=== PATIENT | female | born 1950 | race Caucasian/White ===

== ENCOUNTER → 2016-09-20 | Outpatient (CLI) | payer BC ==
--- NOTE | 2016-09-21 11:59 | MM ---
Reason for exam: screening (asymptomatic). Last mammogram was performed 1 year ago. History: Patient is postmenopausal. Physical Findings: A clinical breast exam by your physician is recommended on an annual basis and results should be correlated with mammographic findings. MG Screening Mammo w CAD Bilateral CC and MLO view(s) were taken. Prior study comparison: September 17, 2015, bilateral MG screening mammo w CAD. July 23, 2014, bilateral MG screening mammo w CAD. April 11, 2013, bilateral digital screening mammo w/CAD. There are scattered fibroglandular densities. No significant changes when compared with prior studies. ASSESSMENT: Negative, BI-RAD 1 RECOMMENDATION: Routine screening mammogram of both breasts in 1 year.
== END | disposition home or self-care (01) ==
LOC: RADMAMWWP 12:55
PROVIDERS: ATTEND Family Medicine
DX: Z12.31 Encounter for screening mammogram for malignant neoplasm of breast (principal)

== ENCOUNTER → 2017-10-18 | Outpatient (CLI) | payer BC ==
--- NOTE | 2017-10-20 08:26 | MM ---
Reason for exam: screening (asymptomatic). Last mammogram was performed 1 year and 1 month ago. History: Patient is postmenopausal. Physical Findings: A clinical breast exam by your physician is recommended on an annual basis and results should be correlated with mammographic findings. MG 3D Screening Mammo W/Cad Bilateral CC and MLO view(s) were taken. Prior study comparison: September 20, 2016, bilateral MG screening mammo w CAD. September 17, 2015, bilateral MG screening mammo w CAD. No significant changes when compared with prior studies. ASSESSMENT: Benign, BI-RAD 2 RECOMMENDATION: Routine screening mammogram of both breasts in 1 year.
== END | disposition home or self-care (01) ==
LOC: RADMAMWWP 15:16
PROVIDERS: ATTEND Family Medicine
DX: Z12.31 Encounter for screening mammogram for malignant neoplasm of breast (principal)
CPT/HCPCS: 77063; 77067

== ENCOUNTER 2018-05-17 08:27 | Day surgery (SDC) | payer BC ==
[2018-05-15 14:49] VITALS: BMI 28.7
[~2018-05-17 08:27] MED LIST: LACTATED RINGERS 1,000 ML IV SCH
[2018-05-17 09:01] VITALS: RESP 16; TEMP 98.2
[2018-05-17] MEDS ORDERED: LIDOCAINE 1% 20 ML VIAL (10MG/ML) FOR IV START INTRADERMA ONE (09:04)
[2018-05-17] MEDS ORDERED: LACTATED RINGERS 1,000 ML IV ONE (09:05)
[2018-05-17] MEDS ORDERED: PROPOFOL 10 MG/ML 20 ML VIAL IV ONE (09:33)
[2018-05-17] MEDS ORDERED: IV FLUID CONTINUATION 450 ML IV ONE (09:55)
--- NOTE | 2018-05-17 09:55 | P.PCN ---
Date of Procedure: 05/17/18 Procedure(s) Performed: BRIEF HISTORY: Patient is a 67-year-old pleasant white female, scheduled for an elective colonoscopy as a part of history of colon polyps. She has family history of colon cancer diagnosed in her sister at age 47. Her last colonoscopy was 5 years ago. PROCEDURE PERFORMED: Colonoscopy with snare polypectomy. PREOPERATIVE DIAGNOSIS: History Of colon polyps/family history of colon cancer. IV sedation per Anesthesia. PROCEDURE: After informed consent was obtained, the patient, was brought into the endoscopy unit. IV sedation was administered by Anesthesia under continuous monitoring. Digital rectal examination was normal. Initially the Olympus CF- 160 flexible video colonoscope was then inserted in the rectum, gradually advanced into the cecum without any difficulty. Careful examination was performed as the scope was gradually being withdrawn. Ileocecal valve and the appendiceal orifice were visualized and appeared normal. Prep was excellent. Mucosa of the cecum appeared normal. In the ascending colon there was a 1 cm broad-based polyp that was removed by snare polypectomy. Rest of the, ascending colon, transverse colon, descending colon, sigmoid colon, and rectum appeared normal. Scattered sigmoid diverticulosis seen. Retroflexion was performed in the rectum and no lesions were seen. The patient tolerated the procedure well. IMPRESSION: 1 cm broad-based ascending colon polyp status post polypectomy Scattered sigmoid diverticulosis RECOMMENDATIONS: Findings of this examination were discussed with the patient as well as her family. She was advised to follow with the biopsy results and have a repeat surveillance colonoscopy in 3-5 years based on the biopsy results.
[2018-05-17 10:31] VITALS: BP 142/76; PULSE 63
== END 2018-05-17 10:44 | disposition home or self-care (01) ==
LOC: ORWHC2ENDO 08:27
PROVIDERS: ATTEND Internal Medicine Gastroenterology
DX: Z12.11 Encounter for screening for malignant neoplasm of colon (principal); D12.2 Benign neoplasm of ascending colon; K57.30 Diverticulosis of large intestine without perforation or abscess without bleeding; Z86.010 Personal history of colon polyps; Z80.0 Family history of malignant neoplasm of digestive organs; I10 Essential (primary) hypertension; E78.5 Hyperlipidemia, unspecified; E07.9 Disorder of thyroid, unspecified; M19.90 Unspecified osteoarthritis, unspecified site; Z79.890 Hormone replacement therapy; Z79.1 Long term (current) use of non-steroidal anti-inflammatories (NSAID); Z79.899 Other long term (current) drug therapy
CPT/HCPCS: 88305; 45385; J2704

== ENCOUNTER → 2019-01-23 | Outpatient (CLI) | payer BC ==
--- NOTE | 2019-01-24 11:20 | MM ---
Reason for exam: screening (asymptomatic). Last mammogram was performed 1 year and 3 months ago. History: Patient is postmenopausal. Physical Findings: A clinical breast exam by your physician is recommended on an annual basis and results should be correlated with mammographic findings. MG 3D Screening Mammo W/Cad Bilateral CC and MLO view(s) were taken. Prior study comparison: October 18, 2017, bilateral MG 3d screening mammo w/cad. September 20, 2016, bilateral MG screening mammo w CAD. There are scattered fibroglandular densities. No significant new finding when compared with prior studies. ASSESSMENT: Benign, BI-RAD 2 RECOMMENDATION: Routine screening mammogram of both breasts in 1 year.
== END | disposition home or self-care (01) ==
LOC: RADMAMWWP 13:58
PROVIDERS: ATTEND Family Medicine
DX: Z12.31 Encounter for screening mammogram for malignant neoplasm of breast (principal)
CPT/HCPCS: 77063; 77067

== ENCOUNTER → 2020-03-14 | Outpatient (CLI) | payer BC ==
--- NOTE | 2020-03-17 10:32 | MM ---
Reason for exam: screening (asymptomatic). Last mammogram was performed 1 year and 2 months ago. History: Patient is postmenopausal. Physical Findings: A clinical breast exam by your physician is recommended on an annual basis and results should be correlated with mammographic findings. MG 3D Screening Mammo W/Cad Bilateral CC and MLO view(s) were taken. Prior study comparison: January 23, 2019, bilateral MG 3d screening mammo w/cad. October 18, 2017, bilateral MG 3d screening mammo w/cad. There are scattered fibroglandular densities. Stable benign calcifications. There is no discrete abnormality. No significant changes when compared with prior studies. ASSESSMENT: Benign, BI-RAD 2 RECOMMENDATION: Routine screening mammogram of both breasts in 1 year.
== END | disposition home or self-care (01) ==
LOC: RADMAMWWP 15:17
PROVIDERS: ATTEND Family Medicine
DX: Z12.39 Encounter for other screening for malignant neoplasm of breast (principal)
CPT/HCPCS: 77063; 77067

== ENCOUNTER → 2020-11-26 | Outpatient (CLI) | payer BC ==
--- NOTE | 2020-11-26 16:45 | XR ---
Cervical spine HISTORY: Pain 3 views of the cervical spine There is facet arthropathy change present. Cervical vertebral bodies show preserved height. Bone mine ralization is reduced. Minimal retrolisthesis grade 1 C2-3, anterolisthesis grade 1 C4-5, C5-6 and C6 -7. C7-T1 not well seen. Prevertebral soft tissues are within normal limits. Loss of disc height is p resent especially at C4-5, C5-6. There is associated spondylosis. Spinal curvature is noted. Aorta is dense. Atherosclerotic vascular calcifications noted in the distribution of the carotid arteries. IMPRESSION: Degenerative disc disease and facet arthropathy.
--- NOTE | 2020-11-26 16:46 | XR ---
Lumbar spine HISTORY: Right-sided low back pain radiating into leg 3 views of the lumbar spine Lumbar vertebral bodies show preserved height. Bone mineralization is reduced. Anterolisthesis grade 1 suspected at L3-4, there is multilevel spondylosis. Loss of disc height is present at intervertebra l levels. Sclerosis is present in the posterior elements. There is a dextroscoliosis centered at L2. IMPRESSION: Degenerative disc disease, facet arthropathy, osteopenia, spinal curvature.
== END | disposition home or self-care (01) ==
LOC: RADXRMAIN 14:13
PROVIDERS: ATTEND Chiropractor
DX: M51.16 Intervertebral disc disorders with radiculopathy, lumbar region (principal); M50.30 Other cervical disc degeneration, unspecified cervical region; M47.26 Other spondylosis with radiculopathy, lumbar region; M47.812 Spondylosis without myelopathy or radiculopathy, cervical region; M85.88 Other specified disorders of bone density and structure, other site; M43.8X6 Other specified deforming dorsopathies, lumbar region
CPT/HCPCS: 72040; 72100

== ENCOUNTER 2020-12-13 13:06 | Emergency (ER) | payer BC ==
[2020-12-13 13:16] VITALS: BP 197/108; PULSE 95; RESP 20; TEMP 98.1
[2020-12-13] MEDS ORDERED: methylPREDNISolone SOD SUCCI 125 MG/2 ML VIAL IM STA (13:33)
[2020-12-13] MEDS ORDERED: KETOROLAC 15 MG/ML 1 ML VIAL IVP STA (13:33)
[2020-12-13] MEDS ORDERED: KETOROLAC 15 MG/ML 1 ML VIAL IM STA (13:38)
--- NOTE | 2020-12-13 13:38 | ED ---
Back Pain HPI - General Chief Complaint: Back Pain/Injury Stated Complaint: back pain Time Seen by Provider: 12/13/20 13:22 Source: patient, RN notes reviewed Limitations: no limitations - History of Present Illness Initial Comments: Patient is a 70-year-old female that presents to the emergency Department with right-sided sciatica pain that's been worsen over the last week. She notes that she went to her chiropractor and got an adjustment and stated that she felt worse. She noted that she recently got x-rays approximately a week ago but then got adjusted and the pain increased patient is that she does have radicular symptoms on her right leg with some tingling. She states that standing and walking 10 to make it worse. She denied any bladder or bowel incontinence or retention, weakness decreased range of motion or strength fever fatigue chills. - Related Data Home Medications Medication Instructions Recorded Confirmed Levothyroxine Sodium [Synthroid] 50 mcg PO DAILY 11/22/15 05/17/18 Simvastatin 20 mg PO HS 11/22/15 05/17/18 Ibuprofen [Motrin] 400 - 600 mg PO Q6H PRN 05/15/18 05/17/18 Losartan [Cozaar] 50 mg PO DAILY 05/15/18 05/17/18 diphenhydrAMINE [Benadryl] 25 mg PO HS PRN 05/15/18 05/17/18 Previous Rx's Medication Instructions Recorded predniSONE 50 mg PO DAILY #5 tab 12/13/20 Allergies Allergy/AdvReac Type Severity Reaction Status Date / Time No Known Allergies Allergy Verified 12/13/20 13:16 Review of Systems ROS Statement: Those systems with pertinent positive or pertinent negative responses have been documented in the HPI. ROS Other: All systems not noted in ROS Statement are negative. Past Medical History Past Medical History: Hyperlipidemia, Hypertension, Osteoarthritis (OA), Thyroid Disorder Additional Past Medical History / Comment(s): MIGRAINE HEADACHE History of Any Multi-Drug Resistant Organisms: None Reported Additional Past Surgical History / Comment(s): left eyelid surgery ,AND RIGHT EYELID SURGERY right bunionectomy with joint replacement, UPPER AND LOWER TEETH EXTRACTIONS Past Anesthesia/Blood Transfusion Reactions: Postoperative Nausea & Vomiting (PONV) Past Psychological History: No Psychological Hx Reported Smoking Status: Never smoker Past Alcohol Use History: Rare Past Drug Use History: None Reported - Past Family History Sister(s) Family Medical History: Cancer Additional Family Medical History / Comment(s): COLON CANCER General Exam Limitations: no limitations General appearance: alert, in no apparent distress Head exam: Present: atraumatic, normocephalic, normal inspection Eye exam: Present: normal appearance, PERRL, EOMI. Absent: scleral icterus, conjunctival injection, periorbital swelling Neck exam: Present: normal inspection. Absent: tenderness, meningismus, lymphadenopathy Respiratory exam: Present: normal lung sounds bilaterally. Absent: respiratory distress, wheezes, rales, rhonchi, stridor Cardiovascular Exam: Present: regular rate, normal rhythm, normal heart sounds. Absent: systolic murmur, diastolic murmur, rubs, gallop, clicks Extremities exam: Present: normal inspection, full ROM, normal capillary refill. Absent: tenderness, pedal edema, joint swelling, calf tenderness Back exam: Present: normal inspection, tenderness (Over the right SI) Neurological exam: Present: alert, oriented X3, CN II-XII intact Psychiatric exam: Present: normal affect, normal mood Skin exam: Present: warm, dry, intact, normal color. Absent: rash Course Vital Signs 12/13/20 13:14 Temperature 98.1 F Pulse Rate 95 Respiratory 20 Rate Blood Pressure 197/108 O2 Sat by Pulse 97 Oximetry Medical Decision Making - Medical Decision Making 70-year-old female complaining of right-sided sciatica with radicular symptoms. Lumbar x-ray, 125 mg of methylprednisone, 15 mg of Toradol ordered. X-rays show no acute fractures or dislocations, but do note severe degenerative disc disease Case discussed with Dr. Lambert, patient can discharge home with follow-up primary care. - Radiology Data Radiology results: report reviewed, image reviewed Lumbar spine x-ray: Multilevel severe degenerative disc disease with scoliosis. Multilevel foraminal encroachment noted. Suspect canal stenosis recommend follow-up MRI grade 1 anterior listhesis of L3 on L4. Disposition Clinical Impression: Sciatica, Degenerative disc disease Disposition: HOME SELF-CARE Condition: Stable Instructions (If sedation given, give patient instructions): Acute Low Back Pain (ED) Additional Instructions: Please return to the Emergency Department if symptoms worsen or any other concerns. Follow-up primary care in 3-5 days, talk about potentially getting a prescription for MRI of lumbar spine. [id number]-[id number] anti-inflammatories such as Tylenol Motrin alternating every few hours for pain control. Prescriptions: predniSONE 50 mg PO DAILY #5 tab Is patient prescribed a controlled substance at d/c from ED?: No Referrals: None,Stated [Primary Care Provider] - 1-2 days Time of Disposition: 14:18
--- NOTE | 2020-12-13 14:09 | XR ---
EXAM TYPE: LUMBAR SPINE X RAY SERIES COMPARISON: Back pain HISTORY: 11/26/2020 TECHNIQUE: 4 views are submitted. FINDINGS: Curvature of the spine with multilevel degenerative disc disease. Grade 1 anterolisthesis of L3 on L4 . Severe degenerative disc disease with vacuum disc L2-3, L4-5 and L5-S1 with multilevel significant facet arthropathy. Suspect foraminal encroachment. Nonspecific calcifications in the left pelvis. IMPRESSION: 1. Multilevel severe degenerative disc disease with scoliosis. Multilevel foraminal encroachment note d. Suspect canal stenosis recommend follow-up MRI. Grade 1 anterolisthesis L3 on L4.
== END 2020-12-13 14:37 | disposition home or self-care (01) ==
LOC: EC 13:06
DX: M51.36 Other intervertebral disc degeneration, lumbar region (principal); M19.90 Unspecified osteoarthritis, unspecified site; E78.5 Hyperlipidemia, unspecified; I10 Essential (primary) hypertension
CPT/HCPCS: 72100; 99283; 96372 ×2; J2930; J1885

== ENCOUNTER → 2021-03-17 | Outpatient (CLI) | payer BC ==
--- NOTE | 2021-03-23 12:20 | MM ---
Reason for exam: screening (asymptomatic). Last mammogram was performed 1 year ago. History: Patient is postmenopausal. Physical Findings: A clinical breast exam by your physician is recommended on an annual basis and results should be correlated with mammographic findings. MG 3D Screening Mammo W/Cad Bilateral CC and MLO view(s) were taken. Prior study comparison: March 14, 2020, bilateral MG 3d screening mammo w/cad. January 23, 2019, bilateral MG 3d screening mammo w/cad. There are scattered fibroglandular densities. No significant changes when compared with prior studies. ASSESSMENT: Benign, BI-RAD 2 RECOMMENDATION: Routine screening mammogram of both breasts in 1 year.
== END | disposition home or self-care (01) ==
LOC: RADMAMWWP 14:47
PROVIDERS: ATTEND Family Medicine
DX: Z12.31 Encounter for screening mammogram for malignant neoplasm of breast (principal); Z78.0 Asymptomatic menopausal state
CPT/HCPCS: 77063; 77067

== ENCOUNTER → 2021-05-20 | Outpatient (CLI) | payer BC ==
--- NOTE | 2021-05-21 14:10 | BD ---
EXAMINATION TYPE: Axial Bone Density DATE OF EXAM: 05/20/2021 COMPARISON: NONE CLINICAL HISTORY: Height: 5 FT 3 IN Weight: 171 FRAX RISK QUESTIONS: Alcohol (3 or more units per day): NO Family History (Parent hip fracture): YES Glucocorticoids (More than 3mos): NO (Ex: prednisone, prednisolone, methylprednisolone, dexamethasone, and hydrocortisone). History of Fracture in Adulthood: NO Secondary Osteoporosis: 1. Type 1 Diabetes: NO 2. Hyperthyroidism: YES 3. Menopause before 45: NO 4. Malnutrition: NO 5. Chronic liver disease: NO Rheumatoid Arthritis: NO Current Tobacco Use: NO RISK FACTORS HISTORY OF: Surgery to Spine/Hip(right/left)/Wrist (right/left): NO Family History of Osteoporosis: YES Active: YES Diet low in dairy products/other sources of calcium: NO Postmenopausal woman: AGE 49 Take estrogen and/or progesterone medications: NO Lost more than 2 inches in height since high school: NO MEDICATIONS: Thyroid Medications:YES Which medication: LEVOTHYROXINE How Lon-10 YEARS Additional Medications: BLOOD PRESSURE MEDS, LEVOTHYROXINE, CHOLESTEROL MEDS, Additional History: EXAM MEASUREMENTS: Bone mineral densitometry was performed using the [employer] ([employer]) System. Bone mineral density as measured about the Lumbar spine is: ----- L1-L4(G/cm2): 1.228 T Score Values are as follows: ----- L2: -0.6 ----- L3: 1.3 ----- L4: 1.5 ----- L1-L4: 0.4 PREV BONE DONE ELSEWHERE Bone mineral density about the R hip (g/cm2): 0.794 Bone mineral density about the L hip (g/cm2): 0.810 T Score values are as follows: -----R Neck: -1.8 -----L Neck: -1.6 -----R Total: -0.2 -----L Total: 0.3 PREV BONE DONE ELSEWHERE IMPRESSION: Osteopenia (T Score between -2.5 and -1). There is slightly increased risk of fracture and the patient may be considered for treatment. Re-Screen 2-5 years. NOTE: T-SCORE=SD OF THE YOUNG ADULT MEAN.
== END | disposition home or self-care (01) ==
LOC: RADBDWWP 13:13
PROVIDERS: ATTEND Family Medicine
DX: M85.89 Other specified disorders of bone density and structure, multiple sites (principal); Z98.0 Intestinal bypass and anastomosis status
CPT/HCPCS: 77080

== ENCOUNTER → 2021-05-29 | Outpatient (CLI) | payer BC ==
--- NOTE | 2021-05-29 07:36 | CT ---
EXAMINATION TYPE: CT knee LT wo con DATE OF EXAM: 05/29/2021 COMPARISON: None. HISTORY: Pain Left knee. Nondisplaced fracture left tibial plateau. CT DLP: 317 mGycm Automated exposure control for dose reduction was used. FINDINGS: No acute fracture or dislocation is seen with particular attention to the tibial plateau. There is mo derate medial tibiofemoral compartment narrowing with mild spurring. There is more mild to moderate n arrowing lateral tibiofemoral compartment without significant spurring. There is mild to moderate andreina rowing patellofemoral compartment. There is moderate-size suprapatellar joint effusion. Muscle bulk f airly well maintained. No suspicious focal osseous lesion. IMPRESSION: As above.
== END | disposition home or self-care (01) ==
LOC: RADCTMAIN 06:46
PROVIDERS: ATTEND Orthopaedic Surgery
DX: M17.12 Unilateral primary osteoarthritis, left knee (principal)

== ENCOUNTER → 2022-03-18 | Outpatient (CLI) | payer BC ==
--- NOTE | 2022-03-19 08:18 | MM ---
Reason for Exam: Screening (asymptomatic). Last screening mammogram was performed 12 month(s) ago. Patient History: Menarche at age 12. First Full-Term at age 22. Postmenopausal. Risk Values: Diane 5 year model risk: 1.4%. NCI Lifetime model risk: 3.6%. Prior Study Comparison: 01/23/2019 Bilateral Screening Mammogram, [facility]. 03/14/2020 Bilateral Screening Mammogram, [facility]. 03/17/2021 Bilateral Screening Mammogram, [facility]. Tissue Density: The breast tissue is almost entirely fat. Findings: Analyzed By CAD. There is no suspicious group of microcalcifications or new suspicious mass in either breast. Overall Assessment: Negative, BI-RAD 1 Management: Screening Mammogram of both breasts in 1 year. A clinical breast exam by your physician is recommended on an annual basis and results should be correlated with mammographic findings. Electronically signed and approved by: Felice Quintana DO
== END | disposition home or self-care (01) ==
LOC: RADMAMWWP 14:34
PROVIDERS: ATTEND Family Medicine
DX: Z12.31 Encounter for screening mammogram for malignant neoplasm of breast (principal); Z78.0 Asymptomatic menopausal state
CPT/HCPCS: 77063; 77067

== ENCOUNTER 2022-06-18 11:08 | Day surgery (SDC) | payer BC ==
[~2022-06-18 11:08] MED LIST changes: +LIDOCAINE 1% (10MG/ML) FOR IV START INTRADERMA PRN; +ONDANSETRON 4 MG/2 ML VIAL IVP PRN
[2022-06-18 12:29] VITALS: TEMP 96.6
[2022-06-18] MEDS ORDERED: PROPOFOL 10 MG/ML 20 ML VIAL IV ONE (13:22)
[2022-06-18] MEDS ORDERED: LIDOCAINE 2% INJ 20 MG/ML (2 ML VIAL) ONE (13:22)
--- NOTE | 2022-06-18 13:36 | P.PCN ---
Date of Procedure: 06/18/22 Procedure(s) Performed: BRIEF HISTORY: Patient is a 71-year-old pleasant white female scheduled for an elective colonoscopy as a part of evaluation of prior history of colon polyps. Her last colonoscopy was 5 years ago. PROCEDURE PERFORMED: Colonoscopy with biopsy. PREOPERATIVE DIAGNOSIS: History of colon polyps IV sedation per Anesthesia. PROCEDURE: After informed consent was obtained, the patient, was brought into the endoscopy unit. IV sedation was administered by Anesthesia under continuous monitoring. Digital rectal examination was normal. Initially the Olympus CF-160 flexible video colonoscope was then inserted in the rectum, gradually advanced into the cecum without any difficulty. Careful examination was performed as the scope was gradually being withdrawn. Ileocecal valve and the appendiceal orifice were visualized and appeared normal. Prep was excellent. Mucosa of the cecum, ascending colon, transverse colon,appeared normal. In the descending colon and sigmoid colon there were isolated patchy areas of colitis noted which was biopsied. There was mild mucosal erythema noted here. Scattered left sided diverticulosis seen. Rest of the descending colon, sigmoid colon, and rectum appeared normal. Retroflexion was performed in the rectum and no lesions were seen. The patient tolerated the procedure well. IMPRESSION: Isolated patchy areas of colitis in the sigmoid colon and descending colon with normal appearing intervening mucosa status post biopsies Scattered sigmoid diverticulosis No evidence of colorectal neoplasia RECOMMENDATIONS: Findings of this examination were discussed with the patient as well as a family. She was advised to follow with the biopsy results. She can have a repeat colonoscopy at age 78.
[2022-06-18 13:42] VITALS: RESP 16
[2022-06-18 13:58] VITALS: BP 158/82; PULSE 68
== END 2022-06-18 14:40 | disposition home or self-care (01) ==
LOC: ORWHC2ENDO 11:08
PROVIDERS: ATTEND Internal Medicine Gastroenterology
DX: Z12.11 Encounter for screening for malignant neoplasm of colon (principal); D12.7 Benign neoplasm of rectosigmoid junction; K57.30 Diverticulosis of large intestine without perforation or abscess without bleeding; K52.9 Noninfective gastroenteritis and colitis, unspecified; Z87.19 Personal history of other diseases of the digestive system
CPT/HCPCS: 45380; J2704; J2001; 88305

== ENCOUNTER → 2022-12-15 | Outpatient (CLI) | payer BC ==
[2022-12-15 15:29] LABS: INR 0.9 (<1.2); Partial Thromboplastin Time 23.4 sec (22.0-30.0); Prothrombin Time 9.9 sec (9.0-12.0)
[2022-12-15 20:00] LABS: Appearance,Urine Clear (Clear); Bilirubin,Urine Negative (Negative); Blood,Urine Negative (Negative); Color,Urine Yellow (Yellow); Ketones,Urine Negative (Negative); Nitrite,Urine Negative (Negative); Specific Gravity,Urine 1.004 (1.001-1.030); Urobilinogen,Urine 0.2 (0.2,1.0)
[2022-12-15 20:03] LABS: HCT 38.4 % (37.2-46.3); HGB 12.6 g/dL (12.0-15.0); MCH 30.8 pg (27.0-32.0); MCHC 32.8 g/dL (32.0-37.0); MCV 93.9 fL (80.0-97.0); NRBC Per 100 WBC 0 /100 WBCS (0.0-0.0); Platelet Count 211 X 10*3/uL (140-440); RBC 4.09 X 10*6/uL (4.10-5.20); RDW 12.5 % (11.5-14.5)
[2022-12-15 20:06] LABS: Bacteria,Urine None Seen /HPF (None Seen)
[2022-12-15 20:49] LABS: African American GFR (CKD) 43.9 (60.0-200.0); Albumin 4.5 g/dL (3.8-4.9); Albumin/Globulin Ratio 2.16 (1.60-3.17); Anion Gap 13.2 mmol/L (10.00-18.00); BUN/Creat Ratio 9.49 Ratio (12.00-20.00); Calcium 9.7 mg/dL (8.7-10.3); Carbon Dioxide 21.7 mmol/L (20.0-27.5); Globulin 2.1 g/dL (1.6-3.3); Non-African American GFR(CKD) 37.9 (60.0-200.0); Potassium 4.3 mmol/L (3.5-5.5); Total Bilirubin 0.5 mg/dL (0.30-1.20); Total Protein 6.6 g/dL (6.2-8.2)
== END | disposition home or self-care (01) ==
LOC: LABPAT 14:05
PROVIDERS: ATTEND Orthopaedic Surgery
DX: Z01.812 Encounter for preprocedural laboratory examination (principal); M17.12 Unilateral primary osteoarthritis, left knee
CPT/HCPCS: 80053; 81001; 85027; 85610; 85730; 87070

== ENCOUNTER → 2022-12-15 | Outpatient (CLI) | payer BC ==
--- NOTE | 2022-12-15 14:12 | CT ---
EXAMINATION TYPE: CT left knee - [facility] Protocol DATE OF EXAM: 12/15/2022 COMPARISON: CT left knee May 29, 2021 HISTORY: pre-op left total knee CT DLP: 787 mGycm. Automated Exposure Control for Dose Reduction was Utilized. TECHNIQUE: CT scan of the pelvis and bilateral ankles and left knee are performed without IV contras t. FINDINGS: Exam is for surgical planning and not for diagnostic purposes. A few diverticula in the sigmoid colon are identified. Mild to moderate symmetric axial narrowing of both hip joints is seen. Images of the left knee show tricompartment degenerative change greatest medial tibiofemoral compartm ent where there is [id number] narrowing and endplate sclerosis. There is a moderate-sized sup rapatellar joint effusion. Images of the bilateral ankles show no significant abnormality. IMPRESSION: As above.
== END | disposition home or self-care (01) ==
LOC: RADCTMAIN 13:26
PROVIDERS: ATTEND Orthopaedic Surgery
DX: M17.12 Unilateral primary osteoarthritis, left knee (principal)

== ENCOUNTER 2023-01-14 05:31 | Day surgery (SDC) | payer BC ==
[2023-01-07 13:35] VITALS: BMI 29.1
[2023-01-14] MEDS ORDERED: HYDROmorphone 0.5 MG/0.5 ML SYRINGE IVP PRN ×4 (05:51→10:24)
[2023-01-14] MEDS ORDERED: ONDANSETRON 4 MG/2 ML VIAL IVP ONE (05:51)
[2023-01-14] MEDS ORDERED: DEXAMETHASONE SOD PHOSPHATE 4 MG/ML 1 ML VIAL IV ONE (05:51)
[2023-01-14] MEDS ORDERED: DEXAMETHASONE SOD PHOSPHATE 10 MG/ML 1 ML VIAL IV PRN (06:00)
[2023-01-14] MEDS ORDERED: TRANEXAMIC ACID IN NACL,ISO-OS 1,000 MG in SALINE 1 100ML.BAG IV PRN (06:00)
[2023-01-14] MEDS ORDERED: KETOROLAC 15 MG/ML 1 ML VIAL IVP PRN (06:00)
[2023-01-14] MEDS ORDERED: ACETAMINOPHEN TAB 500 MG TAB PO PRN (06:00)
[2023-01-14] MEDS ORDERED: DOCUSATE 100 MG CAP PO PRN (06:00)
[2023-01-14] MEDS ORDERED: oxyCODONE ER 10 MG TAB.ER.12H PO PRN (06:00)
[2023-01-14] MEDS ORDERED: FAMOTIDINE 20 MG/2 ML VIAL IVP PRN (06:00)
[2023-01-14] MEDS ORDERED: TRANEXAMIC ACID IN NACL,ISO-OS 1,000 MG in SALINE 1 100ML.BAG IVPB PRN (06:00)
[2023-01-14] MEDS ORDERED: ONDANSETRON 4 MG/2 ML VIAL IVP PRN ×2 (06:00→10:24)
[2023-01-14] MEDS: LACTATED RINGERS 1,000 ML IV SCH ×3 (06:25→21:49)
[2023-01-14] MEDS ORDERED: MIDAZOLAM 2 MG/2 ML VIAL IVP ONE (07:08)
[2023-01-14] MEDS ORDERED: fentaNYL (PF) 50 MCG/ML 2 ML AMP IVP ONE (07:08)
[2023-01-14] MEDS ORDERED: VANCOMYCIN IV PER PHARMACY 1 EACH MISC MISCELLANE PRN (07:17)
[2023-01-14] MEDS ORDERED: VANCOMYCIN 1,250 MG in SODIUM CHLORIDE 0.9% 250 ML IVPB STA (07:21)
[2023-01-14] MEDS: ROPIVACAINE/EPI/CLONIDINE/KET 50 ML SYRINGE MISCELLANE PRN ×2 (07:44→09:29)
[2023-01-14] MEDS ORDERED: PHENYLEPHRINE-0.9% NACL SYG 1,000 MCG/10 ML SYRINGE ONE (07:48)
[2023-01-14] MEDS ORDERED: fentaNYL (PF) 50 MCG/ML 2 ML AMP ONE (07:48)
[2023-01-14] MEDS ORDERED: GLYCOPYRROLATE 0.2 MG/ML 2 ML VIAL ONE (07:48)
[2023-01-14] MEDS ORDERED: PROPOFOL 10 MG/ML 20 ML VIAL IV ONE (07:48)
[2023-01-14] MEDS ORDERED: ROPIVACAINE 5 MG/ML 30 ML VIAL ONE (07:48)
[2023-01-14] MEDS ORDERED: ePHEDrine 50 MG/ML 1 ML VIAL ONE (07:48)
[2023-01-14] MEDS ORDERED: TRANEXAMIC ACID IN NACL,ISO-OS 1,000 MG/100 ML BAG ONE (07:48)
[2023-01-14] MEDS ORDERED: LIDOCAINE 2% INJ 20 MG/ML (2 ML VIAL) ONE (07:48)
[2023-01-14] MEDS ORDERED: SODIUM CHLORIDE 0.9% (PF) 10 ML VIAL ONE (07:48)
[2023-01-14] MEDS ORDERED: SUCCINYLCHOLINE CHLORIDE 200 MG/10 ML VIAL IV ONE (07:48)
[2023-01-14] MEDS ORDERED: LACTATED RINGERS 1,000 ML IV ONE (09:23)
--- NOTE | 2023-01-14 10:03 | P.OP ---
Date of Procedure: 01/14/23 Preoperative Diagnosis: Severe left knee osteoarthritis Postoperative Diagnosis: Same Procedure(s) Performed: Left total knee arthroplasty Implants: 1. [place] [employer] CR Femur Size #4 2. [place] [employer] [place] Tibial Base Size #4 3. [place] [employer] CS poly Size #9 4. [place] [employer] all poly patella, Size #27 Anesthesia: DYLONA, regional Surgeon: Harpreet Busby Manager Of Drilling #1: Saeed Yates Estimated Blood Loss (ml): 100 IV fluids (ml): 1,100 Pathology: none sent Condition: stable Disposition: PACU Indications for Procedure: I met with the patient preoperatively in the office setting and discussed treatment of their symptomatic knee arthritis. They failed a long course of nonsurgical treatment and elected to proceed with an elective total knee replacement. I discussed the potential risks and complications at length and gave them ample time to ask questions. Risks discussed included: risks from anesthesia, superficial site surgical infection, acute and/or chronic periprosth etic joint infection, delayed wound healing, drainage, wound necrosis, instability, stiffness, stiffness requiring manipulation and/or revision surgery, damage to local blood vessels or nerves, aseptic loosening of the implants, extensor mechanism issues including disruption, patellar maltracking, avascular necrosis etc., continued or worsened knee pain, generalized dissatisfaction with surgical outcome, need for revision surgery, an inability to regain preinjury level of function, DVT, PE, other medical complications, and possibly loss of life or limb. The patient voiced their understanding that while these are the most common complications other less common complications are possible. They provided both their verbal and written consent to go forward with surgery. Operative Findings: Severe tricompartmental knee osteoarthritis with complete joint space loss in the medial compartment, peripheral osteophytes and a large effusion. Description of Procedure: The patient was identified in preoperative holding and the correct operative extremity was verified and marked with a marker. I reviewed the consent form with the patient at length. All of their questions were answered. The patient was given a block by anesthesia. They were then brought back to the operating room. They were transferred onto the operating room table where a general anesthetic, preoperative antibiotics, and tranexamic acid were administered by anesthesia. A tourniquet was applied to the proximal aspect of the operative extremity. The contralateral extremity was padded under the heel and secured to the operating room table with a nonsterile blue towel and tape. The ipsilateral arm was carefully draped across the patient's chest and secured with a pillow and foam. A post was applied over the lateral aspect of the ipsilateral thigh and a bolster was placed under the ipsilateral foot. I verified that the operative extremity was stable and the knee was flexed to 90. The operative extremity was then placed in a leg pen[place], nonsterile drapes were applied, and the extremity was prepped and draped sterilely in the standard sterile fashion. Prior to starting surgery timeout was performed identifying the correct patient, operative extremity, and procedure. The leg was then elevated, exsanguinated with an Esmarch bandage, and the tourniquet was inflated. An anterior midline incision was made sharply with a scalpel. Once I had dissected deep to the superficial fascial layer medial and lateral flaps were elevated. A medial parapatellar arthrotomy was created. Upon opening the knee joint there were diffuse arthritic changes in all 3 compartments. The anterior horn of the medial meniscus were sharply released and a medial release was performed around the posterior medial corner of the knee to facilitate retractor placement. The fat pad was excised with electrocautery. The patella was found to be severely arthritic and a provisional cut was made with a sagittal saw to facilitate mobilization of the extensor mechanism during the procedure. Remnants of the ACL and PCL were then excised from the notch. 4 mm pins were then placed within the incision in the medial distal femur and proximal tibia. Arrays were applied to the pins and I verified they were completely tightened. The knee was then registered with the [employer] robot and manipulations in implant position were made to balance the knee and opitmize implant position. Using the Talon robotic saw all cuts were made in accordance with our plan. After all bony fragments had been removed the cuts were verified with the planar probe. The tibia was then subluxed forward and sized. The knee was brought into flexion and a lamina filler spreader was placed to allow removal of the meniscal remnants both medially and laterally as well as posterior osteophytes. Local anesthetic was then infiltrated around the joint capsule. Trial implants were then placed within the knee. Range of motion and collateral ligament tension was then evaluated. Adjustments in implant size and position were then made accordingly. Once the knee was felt to be appropriately balanced the Talon pins were removed. The patella was then recut, sized, and punched. A trial patellar button was then placed. With the trial components in place, the patella tracked midline. The femur was then drilled and the trial component removed. The trial tibial component was then appropriately rotated, pinned, and prepared for the keel. All trial components were then removed from the knee. The knee was thoroughly irrigated with pulsatile lavage. Cement was prepared via vacuum mixing in a bowl on the back table. I then hand pressurized cement into the femur and tibia and placed the implants beginning with the tibial base tray and poly liner, femoral component, and finally the patellar button. All extruded cement was removed including from the pin sites. Once the cement had hardened the knee was evaluated one final time with the final polyethylene liner in place. The knee had full extension and flexion and felt stable to varus and valgus stress throughout the arc of motion. The tourniquet was released and with the tourniquet down the patella tracked midline. All bleeders were controlled with electrocautery. The knee was then soaked for 3 minutes with a dilute Betadine soak. The knee was thoroughly irrigated using 3 L of sterile saline and pulsatile lavage. A deep drain was placed. The extensor mechanism was then reapproximated using pop off Vicryl sutures followed by a running barbed suture. The knee was then closed in layers with a 0 strata fix for the deep fascial layer, 2-0 strata fix for the superficial subcutaneous layer and Monocryl and Steri-Strips for the skin. A sterile dressing and drain sponge were applied. I verified that all instrument, sponge, and sharp counts were correct. The patient was then transferred off the operating room table, extubated, and brought to recovery having tolerated the procedure well. Saeed Yates PA-C was required as a skilled diploma dental assistant due to the complexity of the procedure for patient positioning, draping, retraction, placement of hardware, and closure of wound. PLAN: The patient can weight-bear as tolerated on the operative extremity. DVT prophylaxis with aspirin 81 mg twice a day based on preoperative risk stratification. Follow-up in the office in 2 weeks for wound check and x-rays of the knee including an AP and lateral.
[2023-01-14] MEDS ORDERED: hydrOXYzine pamoate 25 MG CAP PO PRN (10:24)
[2023-01-14] MEDS ORDERED: HYDROcodone/APAP 5-325MG 1 EACH TAB PO PRN (10:24)
[2023-01-14] MEDS ORDERED: NALOXONE 0.4 MG/ML 1 ML VIAL IV PRN (10:24)
--- NOTE | 2023-01-14 10:37 | P.ANPRN ---
Procedure Note - Anesthesia - Nerve Block Performed Left Adductor Canal Single Time Out Performed: Yes (0707) Date of Procedure: 01/14/23 Procedure Start Time: 07:08 Procedure Stop Time: 07:11 Location of Patient: PreOp Indication: Acute Post-Operative Pain, Requested by Surgeon Specifically requested for management of pain by DrChika: Harpreet Busby Sedation Type: Sedate with meaningful contact maintained Preparation: Sterile Prep Position: Supine Catheter: None Needle Types: Pajunk Needle Gauge: 21 Ultrasound used to visualize needle placement: Yes Ultrasound used to observe medication spread: Yes Injectate: 0.5% Ropivacaine (see comment for volume) (15cc+5cc nacl pf) Blood Aspirated: No Pain Paresthesia on Injection Noted: No Resistance on Injection: Normal Image Stored and Saved: Yes Events: Uneventful and Well Tolerated
--- NOTE | 2023-01-14 10:39 | P.ANPRN ---
Procedure Note - Anesthesia - Nerve Block Performed Left iPack Single Time Out Performed: Yes (0707) Date of Procedure: 01/14/23 Procedure Start Time: 07:12 Procedure Stop Time: 07:15 Location of Patient: PreOp Indication: Acute Post-Operative Pain, Requested by Surgeon Specifically requested for management of pain by DrChika: Harpreet Busby Sedation Type: Sedate with meaningful contact maintained Preparation: Sterile Prep Position: Supine Catheter: None Needle Types: Pajunk Needle Gauge: 21 Ultrasound used to visualize needle placement: Yes Ultrasound used to observe medication spread: Yes Injectate: 0.5% Ropivacaine (see comment for volume) (15cc + 5 cc nacl pf) Blood Aspirated: No Pain Paresthesia on Injection Noted: No Resistance on Injection: Normal Image Stored and Saved: Yes Events: Uneventful and Well Tolerated
--- NOTE | 2023-01-14 10:59 | XR ---
EXAMINATION TYPE: XR knee limited LT DATE OF EXAM: 01/14/2023 COMPARISON: NONE TECHNIQUE: Two views submitted HISTORY: Post op FINDINGS: There is a prosthetic knee in near anatomic alignment. There is soft tissue edema and emphysema. Mendez rgical drain noted. IMPRESSION: 1. Postoperative change. Appears in near-anatomic alignment
[2023-01-14] MEDS ORDERED: HYDROmorphone 0.5 MG/0.5 ML SYRINGE IVP ONE (11:19)
[2023-01-14] MEDS: ASPIRIN 81 MG PO SCH (20:09)
[2023-01-14] MEDS ORDERED: SENNOSIDES-DOCUSATE SODIUM 1 EACH TAB PO SCH (21:00)
[2023-01-14] MEDS: HYDROcodone/APAP 5-325MG 1 EACH TAB PO PRN (23:33)
[2023-01-15 02:03] VITALS: TEMP 98.1
[2023-01-15] MEDS: HYDROcodone/APAP 5-325MG 1 EACH TAB PO PRN ×2 (05:05→11:06)
[2023-01-15 06:16] LABS: Basophils % (A) 0 %; Eosinophils % (A) 0 %; HCT 31.1 % (34.0-46.0); HGB 10.2 gm/dL (11.4-16.0); Lymphocytes # (A) 4.5 k/uL (1.0-4.8); Lymphocytes % (A) 32 %; MCH 30.9 pg (25.0-35.0); MCHC 32.8 g/dL (31.0-37.0); MCV 94.3 fL (80.0-100.0); Mean Platelet Volume 7.7; Monocytes # (A) 0.8 k/uL (0-1.0); Monocytes % (A) 6 %; Neutrophils # (A) 8.4 k/uL (1.3-7.7); Neutrophils % (A) 60 %; Platelet Count 182 k/uL (150-450); RDW 13.4 % (11.5-15.5)
[2023-01-15] MEDS ORDERED: PANTOPRAZOLE 40 MG TABLET PO PRN (07:09)
[2023-01-15] MEDS ORDERED: LEVOTHYROXINE 50 MCG TAB PO SCH (08:00)
[2023-01-15 08:33] VITALS: BP 115/51; PULSE 64; RESP 18
--- NOTE | 2023-01-15 08:53 | P.PN ---
Subjective Progress Note Date: 01/15/23 Patient's talus morning. She complains of some mild discomfort along the lateral posterior aspect of her knee. The block is wearing off and she has altered sensation in her foot from this. She is otherwise doing well. She's been up several times to walk to the bathroom. At the time of evaluation phys ical therapy is in the room. Objective - Vital Signs Vital signs: Vital Signs Temp 98.1 F 01/15/23 07:31 Pulse 64 01/15/23 07:31 Resp 18 01/15/23 07:31 BP 115/51 01/15/23 07:31 Pulse Ox 97 01/15/23 07:31 FiO2 Intake & Output 01/14/23 01/15/23 01/15/23 18:59 06:59 18:59 Intake Total 2049 Output Total 630 Balance 1420 Weight 73.8 kg Intake: IV 2049 Output: Drainage 30 Left 30 Urine 500 Estimated Blood Loss 100 Other: # Voids 3 - Exam Patient is sitting up at the side of the bed. She is no apparent distress. On inspection the left leg there is a clean-appearing dressing with no bleeding on the anterior aspect of the knee. Her Hemovac drain was removed. Her femoral nerve function is intact. Distally motor and sensory function are intact in her foot. - Labs CBC & Chem 7: 01/15/23 05:37 Labs: Abnormal Lab Results - Last 24 Hours (Table) 01/15/23 Range/Units 05:37 WBC 14.0 H (3.8-10.6) k/uL RBC 3.30 L (3.80-5.40) m/uL Hgb 10.2 L (11.4-16.0) gm/dL Hct 31.1 L (34.0-46.0) % Neutrophils # 8.4 H (1.3-7.7) k/uL Assessment and Plan Assessment: Postoperative day #1 status post left total knee replacement Plan: 1. Weight bear as tolerated left lower extremity, with assistance 2. 2 doses postoperative antibiotics 3. DVT prophylaxis with aspirin 81 mg twice a day 4 weeks 4. Physical therapy for gait training 5. Discharge home later this morning when passes physical therapy and pain controlled
--- NOTE | 2023-01-15 08:54 | P.DS ---
Providers Date of admission: 01/14/2023 Attending physician: Harpreet Busby Consults: 01/14/23 10:35 Consult Physician Routine Consulting Provider: Toy Luciano Consult Reason/Comments: medical management Do you want consulting provider notified?: Yes Primary care physician: Liya Hussein [facility] Course: Patient is very pleasant 72-year-old female who was admitted under my care yesterday and underwent an uncomplicated total knee replacement. She was transferred to the orthopedic floor. She was transitioned from IV to oral pain medications. Her drain was discontinued on postoperative day #1. She worked with physical therapy and was ultimately cleared for discharge home. Plan - Discharge Summary Discharge Rx Participant: Yes New Discharge Prescriptions: New Docusate [Colace] 100 mg PO BID #60 capsule HYDROcodone/APAP 5-325MG [[place] 5-325] 1 - 2 tab PO Q6HR PRN 7 Days #32 tab PRN Reason: Pain Omeprazole 40 mg PO DAILY 30 Days #30 cap Aspirin 81 mg PO BID 30 Days #60 tab No Action Levothyroxine Sodium [Synthroid] 50 mcg PO DAILY Simvastatin 20 mg PO HS diphenhydrAMINE [Benadryl] 25 mg PO HS PRN PRN Reason: Insomnia Losartan [Cozaar] 100 mg PO DAILY Omeprazole [PriLOSEC] 20 mg PO DAILY PRN PRN Reason: Heartburn amLODIPine [Norvasc] 5 mg PO DAILY Fexofenadine HCl [Cailin Allergy] 180 mg PO DAILY Collagen Powder (Unknown Dose) DAILY Calcium Carbonate [Tums] 500 mg PO TID ALPRAZolam [Xanax] 0.5 mg PO DAILY PRN PRN Reason: Anxiety Discharge Medication List Levothyroxine Sodium [Synthroid] 50 mcg PO DAILY 11/22/15 [History] Simvastatin 20 mg PO HS 11/22/15 [History] Losartan [Cozaar] 100 mg PO DAILY 05/15/18 [History] diphenhydrAMINE [Benadryl] 25 mg PO HS PRN 05/15/18 [History] Omeprazole [PriLOSEC] 20 mg PO DAILY PRN 06/16/22 [History] Fexofenadine HCl [Cailin Allergy] 180 mg PO DAILY 01/07/23 [History] amLODIPine [Norvasc] 5 mg PO DAILY 01/07/23 [History] ALPRAZolam [Xanax] 0.5 mg PO DAILY PRN 01/12/23 [History] Calcium Carbonate [Tums] 500 mg PO TID 01/12/23 [History] Collagen Powder (Unknown Dose) DAILY 01/12/23 [History] Aspirin 81 mg PO BID 30 Days #60 tab 01/14/23 [Rx] Docusate [Colace] 100 mg PO BID #60 capsule 01/14/23 [Rx] HYDROcodone/APAP 5-325MG [[place] 5-325] 1 - 2 tab PO Q6HR PRN 7 Days #32 tab 01/14/23 [Rx] Omeprazole 40 mg PO DAILY 30 Days #30 cap 01/14/23 [Rx] Follow up Appointment(s)/Referral(s): [facility], [NON-STAFF] - 1-2 Days ([facility] will call you to schedule in home physical therapy visits. ) Harpreet Busby MD [Medical Doctor] - 2 Weeks Patient Instructions/Handouts: Knee Replacement (DC) Activity/Diet/Wound Care/Special Instructions: Weight bear to tolerance on operative extremity with a walker. Keep operative dressing in place until follow-up in the office. Call the office if dressing becomes saturated or falls off. May shower over dressing. Take pain medications as needed. Take aspirin 81mg twice a day x 4 weeks for blood clot prevention. Follow-up in the office in two weeks at [facility]. Call the office with any questions or concerns, Discharge Disposition: HOME WITH HOME HEALTH SERVICES
[2023-01-15] MEDS: LACTATED RINGERS 1,000 ML IV SCH ×2 (09:19)
[2023-01-15] MEDS: ASPIRIN 81 MG PO SCH (09:19)
--- NOTE | 2023-01-15 10:27 | P.PN ---
Progress Note - Text Progress Note Date: 01/15/23 The patient underwent total knee replacement and is making progress with this. Please note, we have ordered a walker for patient use for home. The patient has mobility limitation that significant impairs her ability to participate in numerous activities of daily living. The patient can safely use the walker as ordered and can have significant functional improvement of the motor debility deficit with the use of a walker for home use.
--- NOTE | 2023-01-15 12:56 | P.CONS ---
History of Present Illness - Reason for Consult Consult date: 01/15/23 - History of Present Illness This is a 72-year-old female with history significant for hyperlipidemia, hypertension, arthritis, hypothyroidism, anxiety. Patient presents for an elective total left knee arthroplasty by Dr. Busby, today patient is postoperative day 1 evaluated on the medical floor. Patient is receiving aspirin 81 mg twice a day for DVT prophylaxis and will continue for 30 days on discharge. Blood pressures on the lower side today at 91/56 and 115/51: Recommend holding patient's home medications of amlodipine, losartan on discharge and monitor blood pressure home. Patient is to avoid postoperative hypotension. Patient has a elevated white count of 14.0 which is likely due to postoperative atelectasis versus reactive is expected to improve. Patient is continued on incentive spirometer recommending discharge to continue with 10 times per hour. Patient today denies shortness of breath, no chest pain, no fever or chills. There is no numbness or tingling to the left lower extremity. Reports pain is controlled with oral medications. REVIEW OF SYSTEMS: CONSTITUTIONAL: No fever, no malaise, no fatigue. HEENT: No recent visual problems or hearing problems. Denied any sore throat. CARDIOVASCULAR: No chest pain, orthopnea, PND, no palpitations, no syncope. PULMONARY: No shortness of breath, no cough, no hemoptysis. GASTROINTESTINAL: No diarrhea, no nausea, no vomiting, no abdominal pain. NEUROLOGICAL: No headaches, no weakness, no numbness. HEMATOLOGICAL: Denies any bleeding or petechiae. GENITOURINARY: Denies any burning micturition, frequency, or urgency. MUSCULOSKELETAL/RHEUMATOLOGICAL: Denies any joint pain, swelling, or any muscle pain. ENDOCRINE: Denies any polyuria or polydipsia. The rest of the 14-point review of systems is negative. PHYSICAL EXAMINATION: GENERAL: The patient is alert and oriented x3, not in any acute distress. Well developed, well nourished. HEENT: Pupils are round and equally reacting to light. EOMI. No scleral icterus. No conjunctival pallor. Normocephalic, atraumatic. No pharyngeal erythema. No thyromegaly. CARDIOVASCULAR: S1 and S2 present. No murmurs, rubs, or gallops. PULMONARY: Chest is clear to auscultation, no wheezing or crackles. ABDOMEN: Soft, nontender, nondistended, normoactive bowel sounds. No palpable organomegaly. MUSCULOSKELETAL: No joint swelling or deformity. Post surgical left knee with minimal swelling around incision site. Post surgical positive pulses. EXTREMITIES: No cyanosis, clubbing, or pedal edema. NEUROLOGICAL: Gross neurological examination did not reveal any focal deficits. SKIN: No rashes. Assessment and plan Hypertension patient is currently hypotensive, low normal blood pressures and recommend to hold amlodipine and losartan discharge Postoperative day #1 elective total left knee arthroplasty patient is receiving aspirin twice a day for DVT prophylaxis as per primary service is History of hyperlipidemia History of osteoarthritis History of hypothyroidism patient is resumed on levothyroxine History of anxiety isn't to continue on Xanax as needed daily GI prophylaxis with omeprazole DVT prophylaxis estimated twice a day as mentioned Full code Patient is cleared medically for discharge home with the above-mentioned recommendations. Continue with pain medication as needed and recommend to continue on a bowel regimen to avoid constipation. Aspirin twice a day to continue for 30 days on discharge and follow-up with orthopedics outpatient in 2 weeks patient needs to scheduled this appointment offices are closed today. Patient follows with Dr. Liya Hussein in the office and recommending to f.u on discharge as well. Check blood pressure at home daily and can resume losartan if blood pressure is above 130s systolic. Would recommend to continue off amlodipine if blood pressures are controlled. Thank you kindly for this consultation. The impression and plan of care has been dictated by Nurse Floyd Bustillos ctitioner as directed. Dr. Juan Manuel MD I have performed a history and physical examination and medical decision making of this patient, discussed the same with the dictator, and agree with the dictat ors assessment and plan as written, documented as a scribe. Based on total visit time, I have performed more than 50% of this visit. Past Medical History Past Medical History: Hyperlipidemia, Hypertension, Osteoarthritis (OA), Thyroid Disorder Additional Past Medical History / Comment(s): occasional tunnel vision aura and mild headache afterward. arthritis in back. occasional heartburn, History of Any Multi-Drug Resistant Organisms: None Reported Additional Past Surgical History / Comment(s): left eyelid surgery ,AND RIGHT EYELID SURGERY, right bunionectomy with joint replacement, UPPER AND LOWER TEETH EXTRACTIONS, RIGHT FOOT, Left knee replacement Past Anesthesia/Blood Transfusion Reactions: Postoperative Nausea & Vomiting (PONV) Past Psychological History: Anxiety Additional Psychological History / Comment(s): anxiety Smoking Status: Never smoker Past Alcohol Use History: Rare Past Drug Use History: None Reported - Past Family History Sister(s) Family Medical History: Cancer Additional Family Medical History / Comment(s): COLON CANCER Father Family Medical History: No Reported History Medications and Allergies Home Medications Medication Instructions Recorded Confirmed Type Levothyroxine Sodium [Synthroid] 50 mcg PO DAILY 11/22/15 01/14/23 History Simvastatin 20 mg PO HS 11/22/15 01/14/23 History diphenhydrAMINE [Benadryl] 25 mg PO HS PRN 05/15/18 01/14/23 History Omeprazole [PriLOSEC] 20 mg PO DAILY PRN 06/16/22 01/14/23 History Fexofenadine HCl [Cailin Allergy] 180 mg PO DAILY 01/07/23 01/14/23 History ALPRAZolam [Xanax] 0.5 mg PO DAILY PRN 01/12/23 01/14/23 History Calcium Carbonate [Tums] 500 mg PO TID 01/12/23 01/14/23 History Collagen Powder (Unknown Dose) DAILY 01/12/23 History Aspirin 81 mg PO BID 30 Days #60 tab 01/14/23 Rx Docusate [Colace] 100 mg PO BID #60 capsule 01/14/23 Rx HYDROcodone/APAP 5-325MG [[place] 1 - 2 tab PO Q6HR PRN 7 Days #32 01/14/23 Rx 5-325] tab Omeprazole 40 mg PO DAILY 30 Days #30 cap 01/14/23 Rx Allergies Allergy/AdvReac Type Severity Reaction Status Date / Time banana Allergy Anaphylaxis Verified 01/14/23 13:23 Physical Exam Vitals: Vital Signs Temp Pulse Pulse Pulse Resp BP BP 01/15/23 07:31 98.1 F 64 18 115/51 01/15/23 01:08 98.1 F 60 16 01/14/23 18:55 97.6 F 64 16 127/75 01/14/23 13:20 97.6 F 81 16 120/62 01/14/23 12:32 72 16 109/59 01/14/23 11:58 72 16 105/58 01/14/23 11:28 82 16 103/65 01/14/23 11:13 77 16 103/54 01/14/23 10:57 74 16 106/53 01/14/23 10:42 72 16 106/54 01/14/23 10:27 78 16 106/52 01/14/23 10:12 97.3 F L 80 12 104/53 BP Pulse Ox 01/15/23 07:31 97 01/15/23 01:08 91/56 95 01/14/23 18:55 96 01/14/23 13:20 98 01/14/23 12:32 98 01/14/23 11:58 98 01/14/23 11:28 100 01/14/23 11:13 94 L 01/14/23 10:57 93 L 01/14/23 10:42 92 L 01/14/23 10:27 95 01/14/23 10:12 93 L Intake and Output 01/14/23 01/15/23 01/15/23 22:59 06:59 14:59 Output Total 530 Balance -530 Output: Drainage 30 Left 30 Urine 500 Other: # Voids 3 Results CBC & Chem 7: 01/15/23 05:37 Labs: Abnormal Lab Results - Last 24 Hours (Table) 01/15/23 Range/Units 05:37 WBC 14.0 H (3.8-10.6) k/uL RBC 3.30 L (3.80-5.40) m/uL Hgb 10.2 L (11.4-16.0) gm/dL Hct 31.1 L (34.0-46.0) % Neutrophils # 8.4 H (1.3-7.7) k/uL
[2023-01-15] MEDS ORDERED: ATORVASTATIN 10 MG TAB PO SCH (21:00)
== END 2023-01-15 12:11 | disposition home health service (06) ==
LOC: OR 05:31 → 4SSUR 10:04 → OR 01-15 12:11
PROVIDERS: ATTEND Orthopaedic Surgery
DX: M17.12 Unilateral primary osteoarthritis, left knee (principal); M25.762 Osteophyte, left knee; G89.18 Other acute postprocedural pain; I10 Essential (primary) hypertension; E78.5 Hyperlipidemia, unspecified; E03.9 Hypothyroidism, unspecified; F10.20 Alcohol dependence, uncomplicated; Z87.891 Personal history of nicotine dependence; Z79.890 Hormone replacement therapy; Z79.899 Other long term (current) drug therapy; Z79.1 Long term (current) use of non-steroidal anti-inflammatories (NSAID)
CPT/HCPCS: 0055T; 27447; 64447; 64999; 85025

== ENCOUNTER → 2023-05-24 | Outpatient (CLI) | payer BC ==
--- NOTE | 2023-05-25 21:10 | MM ---
Reason for Exam: Screening (asymptomatic). Last mammogram was performed 1 year(s) and 2 month(s) ago. Patient History: Menarche at age 12. First Full-Term at age 22. Postmenopausal. Risk Values: Diane 5 year model risk: 1.4%. NCI Lifetime model risk: 3.3%. Prior Study Comparison: 03/14/2020 Bilateral Screening Mammogram, [facility]. 03/17/2021 Bilateral Screening Mammogram, [facility]. 03/18/2022 Bilateral MG 3D screening mammo w/cad, [facility]. Tissue Density: There are scattered fibroglandular densities. Findings: Analyzed By CAD. There is no suspicious group of microcalcifications or new suspicious mass in either breast. Overall Assessment: Negative, BI-RAD 1 Management: Screening Mammogram of both breasts in 1 year. . Patient should continue monthly self-breast exams. A clinical breast exam by your physician is recommended on an annual basis. This exam should not preclude additional follow-up of suspicious palpable abnormalities. Note on Diane scores and lifetime risk: 1. A Diane score greater than 3% is considered moderate risk. If this is the case, consider specialist referral to assess eligibility for a risk reducing agent. 2. If overall lifetime risk for the development of breast cancer is 20% or higher, the patient may qualify for future screening with alternating mammogram and breast MRI. Electronically signed and approved by: Karthik Field M.D. Radiologist
== END | disposition home or self-care (01) ==
LOC: RADMAMWWP 12:52
PROVIDERS: ATTEND Family Medicine
DX: Z12.31 Encounter for screening mammogram for malignant neoplasm of breast (principal); Z78.0 Asymptomatic menopausal state
CPT/HCPCS: 77063; 77067

== ENCOUNTER → 2024-05-25 | Outpatient (CLI) | payer BC ==
--- NOTE | 2024-05-25 11:40 | BD ---
EXAMINATION TYPE: Axial Bone Density DATE OF EXAM: 05/25/2024 CLINICAL HISTORY: 73 years old Female. ICD-10 CODE: M85.9 DISORDER OF BONE Height: 5 ft 2 1/2 in Weight: 170 FRAX RISK QUESTIONS: Alcohol (3 or more units per day): no Family History (Parent hip fracture): yes Glucocorticoids (More than 3mos): no (Ex: prednisone, prednisolone, methylprednisolone, dexamethasone, and hydrocortisone). History of Fracture in Adulthood: no Secondary Osteoporosis: 1. Type 1 Diabetes: no 2. Hyperthyroidism: no 3. Menopause before 45: no 4. Malnutrition: no 5. Chronic liver disease: no Rheumatoid Arthritis: no Current Tobacco Use: no RISK FACTORS HISTORY OF: Surgery to Spine/Hip(right/left)/Wrist (right/left): no MEDICATIONS: Thyroid Medications: yes Which medication: levothyroxine How Lon-7 years Osteoporosis Medications: none EXAM MEASUREMENTS: Bone mineral densitometry was performed using the [employer] System. Bone mineral density as measured about the Lumbar spine is: ----- L1-L4(G/cm2): 1.184 T Score Values are as follows: ----- L1: -1.7 ----- L2: -0.8 ----- L3: 0.6 ----- L4: 1.6 ----- L1-L4: 0.0 Z Score Values are as follows: ----- L1: -0.3 ----- L2: 0.6 ----- L3: 1.9 ----- L4: 3.0 ----- L1-L4: 1.4 Bone mineral density has: decreased -3.6 % since study of: 2020 Bone mineral density about the R hip (g/cm2): 0.712 Bone mineral density about the L hip (g/cm2): 0.766 T Score values are as follows: -----R Neck: -2.3 -----L Neck: -2.0 -----R Total: -0.7 -----L Total: -0.2 Z Score values are as follows: -----R Neck: -0.7 -----L Neck: -0.3 -----R Total: 0.8 -----L Total: 1.2 Bone mineral density has: decreased -6.9 % since study of: 2020 FRAX%s: The graph provided illustrates a 15.4 % chance for a major osteoporotic fx and a 4.6 % chance for the hips probability for fx in 10 years time. IMPRESSION: Normal (Values between +1 and -1 indicate normal bone mass). Consider repeating this study in 5 year s or sooner if there is some new clinical indication. NOTE: T-SCORE=SD OF THE YOUNG ADULT MEAN. [facility], , 05/25/2024 11:37 AM
--- NOTE | 2024-05-28 08:43 | MM ---
Reason for Exam: Screening (asymptomatic). Last screening mammogram was performed 12 month(s) ago. Patient History: Menarche at age 12. First Full-Term at age 22. Postmenopausal. Risk Values: Diane 5 year model risk: 1.4%. NCI Lifetime model risk: 3.1%. Prior Study Comparison: 09/20/2016 Bilateral Screening Mammogram, [facility]. 10/18/2017 Bilateral Screening Mammogram, [facility]. 01/23/2019 Bilateral Screening Mammogram, [facility]. 03/14/2020 Bilateral Screening Mammogram, [facility]. 03/17/2021 Bilateral Screening Mammogram, [facility]. 03/18/2022 Bilateral MG 3D screening mammo w/cad, [facility]. 05/24/2023 Bilateral MG 3D screening mammo w/cad, [facility]. Tissue Density: There are scattered areas of fibroglandular density. Findings: Analyzed By CAD. There is no suspicious group of microcalcifications or new suspicious mass in either breast. Benign calcifications. Overall Assessment: Benign, BI-RAD 2 Management: Screening Mammogram of both breasts in 1 year. . Patient should continue monthly self-breast exams. A clinical breast exam by your physician is recommended on an annual basis. This exam should not preclude additional follow-up of suspicious palpable abnormalities. Note on Diane scores and lifetime risk: 1. A Diane score greater than 3% is considered moderate risk. If this is the case, consider specialist referral to assess eligibility for a risk reducing agent. 2. If overall lifetime risk for the development of breast cancer is 20% or higher, the patient may qualify for future screening with alternating mammogram and breast MRI. [facility], , 05/28/2024 8:40 AM. Electronically signed and approved by: Dez Bazzi M.D. Radiologis
== END | disposition home or self-care (01) ==
LOC: RADMAMWWP 10:29
PROVIDERS: ATTEND Family Medicine
CPT/HCPCS: 77063; 77067; 77080

== ENCOUNTER → 2024-07-25 | Outpatient (CLI) | payer BC ==
--- NOTE | 2024-07-25 11:20 | US ---
EXAMINATION TYPE: US venous doppler duplex LE RT DATE OF EXAM: 07/25/2024 11:11 AM COMPARISON: NONE CLINICAL INDICATION: Female, 73 years old with history of I82.401 ACUTE EMBOLISM AND THOMBOS UNSP MARY ANN P VEINS; Right leg pain, no redness or swelling, Pain TECHNIQUE: The lower extremity deep venous system is examined utilizing real time linear array sonog juan pablo with graded compression, color doppler sonography, and spectral doppler. SIDE PERFORMED: Right FINDINGS: VESSELS IMAGED: Common Femoral Vein Deep Femoral Vein Greater Saphenous Vein * Femoral Vein Popliteal Vein Small Saphenous Vein * Proximal Calf Veins (* superficial vessels) Right Leg: Negative for DVT, Color Doppler imaging shows patency of the vessels. Spectral waveforms are within normal limits. IMPRESSION: No ultrasound evidence for deep venous thrombosis. [facility], , 07/25/2024 11:18 AM
== END | disposition home or self-care (01) ==
LOC: RADUSWWP 10:44
PROVIDERS: ATTEND Orthopaedic Surgery
DX: I82.401 Acute embolism and thrombosis of unspecified deep veins of right lower extremity (principal); M17.11 Unilateral primary osteoarthritis, right knee